=== PATIENT | female | born 1970 | race Caucasian/White ===

== ENCOUNTER 2017-02-15 22:22 | Emergency (ER) | payer OTHER ==
[~2017-02-15 22:22] MED LIST: ARMOUR THYROID PO; ASPIRIN325 MG PO; B COMPLEX1 CAP PO; BUDEPRION SR150 MG PO; ESTRADIOL1 MG PO; LEVOTHROID75 MCG; METFORMIN HCL500; PLAQUENIL200 MG; TOPAMAX100 M1 PO; VIACTIV; VITAMIN D31000 UNI3 PO; VIVELLE DOT
[2017-02-15] MEDS ORDERED: CYMBALTA60 M1 PO (22:39)
[2017-02-15] MEDS ORDERED: PLAQUENIL200 M1 PO (22:39)
[2017-02-15] MEDS ORDERED: SYNTHROID125 MC1 PO (22:40)
[2017-02-16] MEDS ORDERED: NORCO 5-325 TA1 EACH PO (00:19)
== END 2017-02-16 00:28 ==
LOC: EDMED 22:22
DX: M25.562 Pain in left knee (principal); E07.9 Disorder of thyroid, unspecified; Z86.718 Personal history of other venous thrombosis and embolism; Z90.710 Acquired absence of both cervix and uterus; Z98.890 Other specified postprocedural states; Z79.890 Hormone replacement therapy; Z79.899 Other long term (current) drug therapy